=== PATIENT | male | born 1975 | race Caucasian/White ===

== ENCOUNTER 2020-02-19 00:51 | Outpatient (CLI) | payer BC, SELFPAY ==
[2020-02-19 16:39] LABS: SARS-CoV-2 RNA PCR Negative
== END 2020-02-19 00:52 | disposition home or self-care (01) ==
LOC: ANHCOVIDDT 00:51
PROVIDERS: PCP Family Medicine; Visit Provider Internal Medicine Gastroenterology
DX: Z01.818 Encounter for other preprocedural examination (principal); Z11.59 Encounter for screening for other viral diseases
CPT/HCPCS: 87635; C9803; U0003

== ENCOUNTER 2020-02-22 01:05 | Day surgery (SDC) | payer BC, SELFPAY ==
[2020-02-15 14:15] VITALS: BMI 24.7
[2020-02-22 07:47] VITALS: BP 140/83; PULSE 72; RESP 16; TEMP 37.1; O2SAT 99
[2020-02-22] MEDS: LACTATED RINGERS 1,000 ML 150 ML IV CONT (07:57)
--- NOTE | 2020-02-22 08:15 | P.PNAN_ITS ---
Anes - Initial Pre Proc Eval Procedure: Operation Date: 02/22/20 09:00 Proposed Procedures p Esophagogastroduodenoscopy & Colonoscopy - Shelton Man MD Date/Time: 02/22/20 08:15 Surgeon: Shelton Man MD Pre Op Diagnosis: abdominal pain, diarrhea Patient Data Age: 45 Gender: M Height: 6 ft 3 in Weight: 88.9 kg Last Vital Signs Temp 98.8 F 02/22/20 07:47 Pulse 72 02/22/20 07:47 Resp 16 02/22/20 07:47 BP 140/83 02/22/20 07:47 Pulse Ox 99 02/22/20 07:47 Allergies Allergy/AdvReac Type Severity Reaction Status Date / Time prednisone Allergy Mild Muscle Pain Verified 02/22/20 07:45 levofloxacin Allergy Hives Verified 02/22/20 07:45 Home Medications Medication Instructions Recorded Confirmed Type dicyclomine 10 mg capsule 10 mg PO .PRN cap 02/14/20 02/15/20 History pantoprazole 40 mg tablet,delayed 40 mg PO .PRN tablet 02/14/20 02/15/20 History release Patient hx anesthesia problems: none Family hx anesthesia problems: none [facility] Past Medical History Medical History (Updated 02/22/20 @ 08:11 by Kash Porter MD) Diarrhea GERD (gastroesophageal reflux disease) Social History Social History (Updated 02/22/20 @ 08:15 by Kash Porter MD) Smoking status: Former smoker Anes - Eval Final PreProcedure Day of Procedure 02/22/20 08:15 Patient weight: normal Heart: regular rate and rhythm Lungs: clear to auscultation Airway: Mallampati scale class II Neurological: alert and oriented Last oral intake: >/= 8 hours ASA classification: II Emergent: no Anesthetic plan: proceed Anesthesia type and monitoring: general GIVS and standard monitoring Informed Consent: The patient's anesthetic plan and its attendant risks and benefits were discussed with the patient/family/POA. Questions were solicited and answers provided to the satisfaction of the patient/family/POA.
--- NOTE | 2020-02-22 09:10 | WPDHPUPDATE1 ---
History and Physical Update Update Date/Time: 02/22/20 09:10 History and Physical has been reviewed, including an updated exam of the patient. There are NO changes in the patient's condition. Risks, benefits, and alternatives have been discussed and questions answered. Patient agrees to proceed with procedure.
[2020-02-22 10:08] VITALS: BP 89/54; PULSE 52; RESP 16; O2SAT 98
[2020-02-22 10:18] VITALS: BP 100/61; PULSE 50; RESP 10; O2SAT 98
[2020-02-22 10:28] VITALS: BP 124/72; PULSE 59; RESP 14; O2SAT 100
== END 2020-02-22 11:10 | disposition home or self-care (01) ==
PROVIDERS: PCP Family Medicine; Visit Provider Internal Medicine Gastroenterology
PROC: 0DJ08ZZ Inspection of Upper Intestinal Tract, Via Natural or Artificial Opening Endoscopic (ICD-10-PCS; CPT 43235; principal; 2020-02-22 09:00)
DX: Z12.11 Encounter for screening for malignant neoplasm of colon (principal); R10.11 Right upper quadrant pain; D12.2 Benign neoplasm of ascending colon; D12.3 Benign neoplasm of transverse colon; D12.4 Benign neoplasm of descending colon; K57.30 Diverticulosis of large intestine without perforation or abscess without bleeding; K64.8 Other hemorrhoids
CPT/HCPCS: 45385; 43239; 88305; J2704; J7120

== ENCOUNTER 2022-01-09 07:54 | Outpatient (RCR) | payer OTHER, SELFPAY ==
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
--- NOTE | 2022-02-08 08:34 | PTOPEVAL ---
Thank you for referring Nabor Winkler to [facility].? The patient is scheduled to be seen for therapy? ____x/week for ___ weeks. Please review, sign, date and return this plan of care [place]A. I agree with and certify that the following plan of care is medically necessary. Referring Physician Date Admitting Provider: Attending Provider: Jasiel Brannon, MD Referring Provider: *PT Outpatient Evaluation Start: 01/09/22 07:00 Freq: Status: Active Protocol: Document 02/08/22 07:29 [facility] (Rec: 02/08/22 08:32 [facility] [email or web address]) Therapy Assessment Status Assessment Status Assessment Status Re-evaluation Outpatient Past Medical History Neurological History Hx Neurological Disorders No Significant History Cardiovascular History Hx Peripheral Vascular Disease Yes: VALVE PROBLEM IN LEGS Respiratory History Hx Bronchitis Yes Gastrointestinal History Hx Gastroesophageal Reflux Disease Yes Genitourinary History Hx Genitourinary Disorders No Significant History Musculoskeletal History Hx Musculoskeletal Disorders No Significant History Hematological History Hx Hematological Disorders No Significant History Endocrine History Hx Endocrine Disorders No Significant History HEENT History Hx Tonsillectomy Yes Integumentary History Hx Skin Disorders No Significant History Reproductive History Hx Reproductive Disorders No Significant History Psychosocial History Hx Psychiatric Disorders No Significant History Pain History History of Any Previous or Ongoing No Significant History Instance of Pain Anesthesia History Hx Anesthesia Reactions No Significant History Evaluation Information Problem Diagnosis left shoulder pain Onset 12/23/21 Additional Evaluation Detail quick dash = 13% functionally declined Subjective Information patient reports he is feeling Query Text:As Reported By Patient/ good this date. he reports Family he has pain only a few times a day now, and has much less pain at worst in the L shoulder. he reports he feels the shoulder is stronger. he reports he is to begin skilled OT for his R wrist later today. Pain Assessment Timing of Pain Assessment Timing of Pain Assessment Assessment Pain Scale Pain Scale Used Numeric (1 - 10) Self Report Pain Assessment Left Shoulder(s) Reported Pain Level 3 Greatest Pain Intensity 4 Pain Score Pain Score 3: Self Report Interventions Used Interventions Used By Clinicians
== END 2022-02-22 09:01 | disposition home or self-care (01) ==
LOC: CHSPT 07:54
PROVIDERS: PCP Family Medicine; Visit Provider Family Medicine
DX: S49.92XD Unspecified injury of left shoulder and upper arm, subsequent encounter (principal)
CPT/HCPCS: 97014; 97110; 97140; 97161; 97530; G0283

== ENCOUNTER 2022-02-08 16:00 | Outpatient (RCR) | payer OTHER, SELFPAY ==
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
--- NOTE | 2022-03-26 17:10 | PCOTNOTE ---
Patient has been discharged from skilled OT services secondary to returning to work per MD. See patient's last treatment note for skills and concerns at time of discharge. MS
== END 2022-03-08 09:02 | disposition home or self-care (01) ==
LOC: CHSOT 16:00
PROVIDERS: PCP Family Medicine; Visit Provider Nurse Practitioner Family
DX: S69.81XD Other specified injuries of right wrist, hand and finger(s), subsequent encounter (principal)
CPT/HCPCS: 97014; 97110; 97140; 97165; G0283

== ENCOUNTER 2022-09-13 10:25 | Outpatient (CLI) | payer OTHER, SELFPAY ==
--- NOTE | ~2022-09-13 | CT_ITS ---
EXAMINATION: CT abdomen pelvis wo con DATE: 09/13/2022 10:40 INDICATION: Left flank pain TECHNIQUE: Computed tomography (CT) of the abdomen and pelvis was performed without intravenous contr ast. The dose-length product (DLP) was 704.14 mGy-cm. Automated exposure control and iterative recons truction technique were employed. COMPARISON: None FINDINGS: The lung bases are clear. The heart size is normal. The liver, spleen, pancreas, gallbladde r, and adrenal glands are normal. There is a 1.6 cm cyst of the right kidney. The left kidney is unre markable. No stones are identified in the kidneys, ureters, or bladder. No hydronephrosis or hydroure ter. No pathologically enlarged abdominal or pelvic lymph nodes are identified. There is calcified at herosclerosis of the aorta and many of the other arteries. There is no free intraperitoneal gas or ev idence of bowel obstruction. The appendix is normal. There is mild lumbar spondylosis. A fat-containi ng umbilical hernia is noted. IMPRESSION: 1. No CT correlate for the patient's symptoms. Reviewed, dictated and finalized at location B. 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
== END 2022-09-13 10:26 | disposition home or self-care (01) ==
LOC: CHSIMG 10:27
PROVIDERS: PCP Family Medicine; Visit Provider Nurse Practitioner
DX: R10.9 Unspecified abdominal pain (principal)
CPT/HCPCS: 74176

== ENCOUNTER 2023-02-07 13:52 | Outpatient (CLI) | payer MEDICAID, SELFPAY ==
--- NOTE | ~2023-02-07 | XR_ITS ---
XR lumbar spine 2-3V 02/07/2023 14:08 Indication: Low back pain Procedure: 3 views lumbar spine Comparison: No prior studies for comparison. Findings: Vertebral body heights are maintained. There is disc narrowing at L3-4, L4-5 and L5-S1. No fracture, subluxation or dislocation. No spondylolisthesis. There is atherosclerosis of the aorta. Impression: 1: Mild-moderate multilevel degenerative disc disease. Reviewed, dictated and finalized at location B. Impression: 1: Mild-moderate multilevel degenerative disc disease.
== END 2023-02-07 13:53 | disposition home or self-care (01) ==
PROVIDERS: PCP Family Medicine; Visit Provider Physician Assistant
DX: M54.50 Low back pain, unspecified (principal); M51.36 Other intervertebral disc degeneration, lumbar region
CPT/HCPCS: 72100

== ENCOUNTER 2023-02-11 10:24 | Outpatient (CLI) | payer MEDICAID, SELFPAY ==
--- NOTE | ~2023-02-11 | US_ITS ---
EXAMINATION: US arterial ankle brachial ind DATE: 02/11/2023 11:04 INDICATION: Claudication. TECHNIQUE: Segmental pressures and plethysmographic and Doppler waveforms of the brachial and lower e xtremity arteries were obtained. COMPARISON: None. FINDINGS: Right and left brachial artery pressures of 160 mm Hg and 156 mm Hg, respectively, are concordant (no rmal difference <= 30 mmHg). The right ankle-brachial index (SATYA) is 1.06 (normal >= 0.9-1.0). The right great toe-brachial index (TBI) is 0.83 (normal >= 0.65). Arterial Doppler waveforms are triphasic in posterior tibial artery a nd monophasic in dorsalis pedis. The left SATYA is 1.05. The left TBI is 0.63. Arterial Doppler waveforms are triphasic in posterior tib ial artery and biphasic in dorsalis pedis. IMPRESSION: 1. Borderline decreased left TBI and normal left SATYA, consistent with left-sided arterial occlusive d isease. Note that SATYA may be overestimated if arteries are calcified. 2. No significant right-sided arterial occlusive disease. Reviewed, dictated and finalized at location L. IMPRESSION: 1. Borderline decreased left TBI and normal left SATYA, consistent with left-side d arterial occlusive disease. Note that SATYA may be overestimated if arteries ar e calcified. 2. No significant right-sided arterial occlusive disease.
== END 2023-02-11 10:25 | disposition home or self-care (01) ==
LOC: CHSIMG 10:25
PROVIDERS: PCP Family Medicine; Visit Provider Physician Assistant
DX: I73.9 Peripheral vascular disease, unspecified (principal)
CPT/HCPCS: 93922

== ENCOUNTER 2023-04-01 14:49 | Outpatient (RCR) | payer OTHER, SELFPAY ==
--- NOTE | 2023-04-07 08:18 | BUOTOPEVAL ---
Assessment and note entered by Josefina Monet OT Evaluation Information Assessment Status Evaluation Diagnosis R wrist pain Onset October 2022 Subjective Information Patient reports pain at medial and dorsal part of R wrist. The patient reports that pulling and fine motor tasks hurt the wrist. During activities, the patient experiences pain during wrist extension and ulnar deviation. 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 The patient states numbness and tingling along ulnar nerve. The patient reports pain during MMT for serratus anterior at anterior scapula. Reported Pain Level Pain Score 0: Self Report Pain Score 4,4: Self Report Pain Score 3,6: Self Report Additional Pain Score Comments Pt. is experiencing pain, but does not rate. Assessment OT Clinical Summary The patient is a 48 year old male who was referred to outpatient OT due to wrist and shoulder pain and weakness. The patient previously demonstrated WNL UE strength, no pain and no numbness or tingling. The patient now demonstrates mild/ moderate numbness and tingling in R UE, decreased UE strength and 3-6/10 pain at R shoulder and wrist. The patient requires skilled OT to address these deficits and return to PLOF in order to complete work tasks. Plan of Care Interventions Therapeutic Exercise,Manual Therapy,Neuro Re- education,Therapeutic Activities,Hot Pack/Cold Pack,Electrical Stimulation,Sensory Integrative Techn,Self-Care/Home Management,Ultrasound OT Services Indicated Yes Treatment Frequency and 3x/week for 10 visits. Duration These treatments will address the objective and functional deficits as defined above. The patient will be advanced safely and appropriately in order for the patient to progress towards his/her prior level of function. Additional exercises will be introduced and as well as a comprehensive home exercise program upon discharge, if needed, ?to ensure carryover of functional gains achieved in the clinic. This treatment plan has been reviewed and agreement upon by the patient.
--- NOTE | 2023-04-11 09:55 | OTOPPROG ---
Assessment and note entered by Josefina Monet OT Evaluation Information Assessment Status Progress Diagnosis R wrist pain Onset October 2022 Subjective Information The patient reports pain in shoulder as 3/10 at time of progress note and continued severe pain at 7/10 during activities. Pain in wrist will fluctuate from 0 to 9/10 pain with patient performing stretches learned from therapy and heat to decrease pain in UE. The patient reports that at the start of therapy he thought his arm was feeling better but has since not changed with pain in R shoulder at scapula and deltoid region. The patient reports pain with internal rotation and scapula retraction/protraction of R UE. During axillary nerve stretches, the patient reports increased numbness and tingling in UE. Assessment OT Clinical Summary The patient demonstrates significantly improved UE strength of R UE leading to increased independence with self care tasks. The patient continues to demonstrate difficulty with lifting heavy objects due to pain in shoulder and wrist that affect his ability to go back to work. The patient demonstrates no change in R filleter strength, sensation and pain symptoms due to sharp pain that the patient has at R shoulder and wrist. The patient reports pain near scapula, anterior shoulder, and ulnar side of wrist and forearm. The patient experiences pain during protraction/ retraction of R scapula with therapist educating patient on axillary nerve glides. Following completion of stretches, the patient experienced increase in tingling symptoms with pain lingering the rest of the day. The patient has completed 6 visits of skilled OT with minimal improvement in pain symptoms, the patient to consult with MD about further treatment for pain. Plan of Care Treatment Frequency and 3x/week for 10 visits. Duration These treatments will address the objective and functional deficits as defined above. The patient will be advanced safely and appropriately in order for the patient to progress towards his/her prior level of function. Additional exercises will be introduced and as well as a comprehensive home exercise program upon discharge, if needed, ?to ensure carryover of functional gains achieved in the clinic. This treatment plan has been reviewed and agreement upon by the patient.
--- NOTE | 2023-04-29 09:58 | BUOTOPDC ---
Assessment and note entered by Josefina Monet, OT Evaluation Information Assessment Status Discharge Diagnosis R wrist pain Onset October 2022 Subjective Information The patient reports pain in R scapula, shoulder, and wrist with continued movement and use of UE. The patient has numbness and tingling in R shoulder at deltoid region. The patient stated he feels stronger and has less signs of numbness and tingling than at start of care but it continues to persist at this time. The patient stated that he wants to get this pain taken care of so that he can start to work again. Reported Pain Level Pain Score 5,5: Self Report Pain Score 3,4: Self Report Pain Score 0,3: Self Report Pain Score 0,4: Self Report Pain Score 3,0: Self Report Pain Score 0: Self Report Pain Score 3,6: Self Report Pain Score 0: Self Report Pain Score 4,4: Self Report Pain Score 3,6: Self Report Additional Pain Score Comments Patient continues to have pain throughout the day and has difficulty performing daily tasks that involve lifting UE. Additional Pain Score Comments Pt. has pain today but does not rate. Additional Pain Score Comments Pt. is experiencing pain, but does not rate. Assessment OT Clinical Summary The patient demonstrates good progress with UE strength affecting his ability to perform daily tasks. The patient continues to demonstrate mild to moderate numbness and tingling in R shoulder and scapula and 6/10 pain in R shoulder and wrist which affect his ability to work and provide income for his family. The patient has demonstrated good understanding and follow through with UE HEP and good motivation to participate in therapy. The patient is discharged at this time due to plateau in progress, to address pain with MD. Plan of Care Interventions Therapeutic Exercise,Manual Therapy,Neuro Re- education,Therapeutic Activities,Hot Pack/Cold Pack,Electrical Stimulation,Sensory Integrative Techn,Self-Care/Home Management,Ultrasound OT Services Indicated No Treatment Frequency and 3x/week for 10 visits. Duration
== END 2023-04-28 17:20 | disposition home or self-care (01) ==
LOC: CHSOT 14:49
PROVIDERS: PCP Family Medicine; Visit Provider Physician Assistant
DX: M25.531 Pain in right wrist (principal)
CPT/HCPCS: 97014; 97110; 97140; 97165; 97530; G0283

== ENCOUNTER 2023-06-12 08:51 | Outpatient (CLI) | payer OTHER, SELFPAY ==
--- NOTE | ~2023-06-12 | MR_ITS ---
MRI of the right shoulder Technique: Axial proton-density fat-sat images, coronal proton density fat-sat and T2 fat-sat images, and sagittal T1-weighted and T2 fat-sat images were acquired. Clinical History: Pain, tingling Findings: There is no significant degenerative change at the AC joint. Coracoclavicular, coracoacromi al, and coracohumeral ligaments are probably intact. Supraspinatus and infraspinatus tendons are intact, without partial or full-thickness tear. Subscapul alissa tendon is intact. Tendon of the long head of the biceps is intact. No definite labral tear identified. Inferior glenohumeral ligament is intact. There is mild diffuse chondromalacia of the glenohumeral damaris int. No joint effusion evident. No fluid distention of the subacromial/subdeltoid bursa. No muscle at rophy or edema. Impression: Mild chondromalacia the glenohumeral joint. Reviewed, dictated and finalized at [facility]. Impression: Mild chondromalacia the glenohumeral joint.
--- NOTE | ~2023-06-12 | MR_ITS ---
MRI of the right wrist Technique: Coronal T1 weighted and proton density fat sat images, and axial and sagittal proton-densi ty and proton-density fat-sat images were acquired. Clinical History: Pain Findings: Scapholunate ligament is intact, and there is no widening of the scapholunate interval. David otriquetral ligament appears intact. There is mild thickening and increased signal of the foveal and ulnar styloid attachments of the TFCC. Bone marrow signals are unremarkable. Joint spaces are preserved. No joint effusion evident. No erosi ve change. Flexor tendons in the carpal tunnel are unremarkable. Extensor tendons are unremarkable. No soft tiss ue mass or fluid collection seen. IMPRESSION: Mild thickening and increased signal of the foveal and ulnar styloid attachments of the TFCC suggests low-grade injury/sprain. Reviewed, dictated and finalized at [facility]. IMPRESSION: Mild thickening and increased signal of the foveal and ulnar styloid attachment s of the TFCC suggests low-grade injury/sprain.
== END 2023-06-12 08:52 | disposition home or self-care (01) ==
PROVIDERS: PCP Family Medicine; Visit Provider Physician Assistant
DX: M94.211 Chondromalacia, right shoulder (principal); M24.131 Other articular cartilage disorders, right wrist
CPT/HCPCS: 73221

== ENCOUNTER 2023-08-14 16:59 | Outpatient (RCR) | payer OTHER, SELFPAY ==
--- NOTE | 2023-08-14 17:52 | OPREHPOC ---
Outpatient Therapy Plan of Care This is a Multidisciplinary Plan of Care that may contain components documented by all disciplines (PT, OT, and ST.) PT Problem 1 PT Problem #1 Knowledge Deficit PT Goal 1 Goal The patient will be independent in a home exercise program. Target Visit 12 PT Problem 2 PT Problem #2 Pain PT Goal 1 Goal The patient will report no greater than 3/10 right shoulder pain with repetitive or sustained overhead movements. Target Visit 12 PT Problem 3 PT Problem #3 Impaired Range of Motion PT Goal 1 Goal The patient will demonstrate 150 degrees of right shoulder abduction AROM in order to perform overhead lifting for daily activities. Target Visit 12 PT Problem 4 PT Problem #4 Impaired Strength PT Goal 1 Goal The patient will demonstrate 4+/5 or greater strength in right shoulder flexion and abduction in order to improve lifting ability. Target Visit 12 PT Problem 5 PT Problem #5 Impaired Functional Mobil PT Goal 1 Goal The patient will have 30% or less self perceived disability per the Quick DASH questionnaire. Target Visit 12
--- NOTE | 2023-08-14 17:52 | PTOPEVAL1 ---
Assessment and note entered by Juliet Arevalo, PT Evaluation Information Assessment Status Evaluation Diagnosis R shoulder impingement Onset 11/05/22 Subjective Information Nabor Winkler reports he hurt his right hand in October 2022 while working. He had an onset of right shoulder pain and stiffness while he was resting while his hand was healing. He notes increased pain when sweeping, casting while fishing, or cleaning a wall or painting a wall. 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 He also notes tingling in his upper back when he moves his arm in an overhead position for a long period like washing his hair. He reports a history of neck arthritis and right hand tendon tear in December 2021 . He is using Meloxicam and Tylenol for his pain as well as ice and heat. Reported Pain Level Pain Score 4: Self Report Assessment PT Clinical Summary Nabor Winkler presents with right shoulder and upper back pain. He has difficulty with sustained overhead movements and repetitive movements like sweeping. He objectively demonstrates tenderness at the right bicep tendon long head, tension in bilateral upper trapezius muscles, decreased right shoulder AROM with a painful arc noted with abduction, decreased right shoulder strength, positive special tests for shoulder impingement and rotator cuff pathology, and decreased functional abilities. He will benefit from skilled PT to address these limitations. Plan of Care Interventions Electrical Stimulation,Hot Pack/Cold Pack,Manual Therapy,Neuro Re-education,Patient/Caregiver Educati,Therapeutic Activities,Therapeutic Exercise PT Services Indicated Yes Treatment Frequency and 3 times a week for 12 visits Duration These treatments will address the objective and functional deficits as defined above. The patient will be advanced safely and appropriately in order for the patient to progress towards his/her prior level of function. Additional exercises will be introduced and as well as a comprehensive home exercise program upon discharge, if needed, ?to ensure carryover of functional gains achieved in the clinic. This treatment plan has been reviewed and agreement upon by the patient.
--- NOTE | 2023-09-02 08:26 | OPREHPOC ---
Outpatient Therapy Plan of Care This is a Multidisciplinary Plan of Care that may contain components documented by all disciplines (PT, OT, and ST.) PT Problem 1 PT Problem #1 Knowledge Deficit PT Goal 1 Goal The patient will be independent in a home exercise program. Target Visit 12 PT Problem 2 PT Problem #2 Pain PT Goal 1 Goal The patient will report no greater than 3/10 right shoulder pain with repetitive or sustained overhead movements. The patient will report no greater than 3/10 pain in the cervical spine. Target Visit 12 PT Problem 3 PT Problem #3 Impaired Range of Motion PT Goal 1 Goal The patient will demonstrate 150 degrees of right shoulder abduction AROM in order to perform overhead lifting for daily activities. Improve bilateral cervical sidebending to 40 degrees Improve cervical extension to 50 degrees Target Visit 12 PT Problem 4 PT Problem #4 Impaired Strength PT Goal 1 Goal The patient will demonstrate 5/5 or greater strength in bilateral shoulders overall Target Visit 12 PT Problem 5 PT Problem #5 Impaired Functional Mobil PT Goal 1 Goal The patient will have 30% or less self perceived disability per the Quick DASH questionnaire. Patient will report reduction of R radicular symptoms to not past the R shoulder. Target Visit 12
--- NOTE | 2023-09-02 08:26 | PTOPREEVAL ---
Assessment and note entered by JT File, PT Evaluation Information Assessment Status Re-evaluation Diagnosis cervical radiculopathy Onset 08/29/23 Subjective Information patient arrives to therapy today having recently learned of results of his neck MRI since his last therapy visit. he reports he has some bulged discs and stenosis/spondylosis. he reports the MD suggests we hold on the shoulder at this time, and focus on treatment of the neck. he presents to skilled PT with orders to evaluate and treat patient for cervical radiculopathy. he reports he has pain at the base of his skull, at times he will have a twinge on either side of the neck, and he has pain and tingling in the R shoulder. he reports the symptoms will carry down to the finger tips of the R arm. Assessment PT Clinical Summary mr. alcala is a 48 yo man who presents to skilled PT services for his 6th skilled therapy visit for the shoulder. however, he presents to skilled PT today with orders to evaluate the neck for cervical radiculopathy. he presents today with deficits in cervical rom, positive cervical special tests, and paresthesias in the R arm indicative of R cervical radiculopathy. he would benefit from continued skilled PT to focus on shift of treatment to the cervical spine for the remainder of his initial POC. Plan of Care Interventions Electrical Stimulation,Hot Pack/Cold Pack,Manual Therapy,Mechanical Traction,Neuro Re-education, Patient/Caregiver Educati,Therapeutic Activities, Therapeutic Exercise PT Services Indicated Yes Treatment Frequency and continue skilled PT 3x weekly for 6 more visits Duration from today. These treatments will address the objective and functional deficits as defined above. The patient will be advanced safely and appropriately in order for the patient to progress towards his/her prior level of function. Additional exercises will be introduced and as well as a comprehensive home exercise program upon discharge, if needed, ?to ensure carryover of functional gains achieved in the clinic. This treatment plan has been reviewed and agreement upon by the patient.
--- NOTE | 2023-09-24 17:25 | OPREHPOC ---
Outpatient Therapy Plan of Care This is a Multidisciplinary Plan of Care that may contain components documented by all disciplines (PT, OT, and ST.) PT Problem 1 PT Problem #1 Knowledge Deficit PT Goal 1 Goal The patient will be independent in a home exercise program. Target Visit 12 Progress Met PT Problem 2 PT Problem #2 Pain PT Goal 1 Goal The patient will report no greater than 3/10 right shoulder pain with repetitive or sustained overhead movements. The patient will report no greater than 3/10 pain in the cervical spine. Target Visit 18 Progress Not Met PT Problem 3 PT Problem #3 Impaired Range of Motion PT Goal 1 Goal The patient will demonstrate 150 degrees of right shoulder abduction AROM in order to perform overhead lifting for daily activities. Improve bilateral cervical sidebending to 40 degrees Improve cervical extension to 50 degrees Target Visit 18 Progress Not Met Comment progress made PT Problem 4 PT Problem #4 Impaired Strength PT Goal 1 Goal The patient will demonstrate 5/5 or greater strength in bilateral shoulders overall Target Visit 18 Progress Partially Met PT Problem 5 PT Problem #5 Impaired Functional Mobil PT Goal 1 Goal The patient will have 30% or less self perceived disability per the Quick DASH questionnaire. Patient will report reduction of R radicular symptoms to not past the R shoulder. patient to turn head to both sides without increased cervical pain or R UE paresthesias Target Visit 18 Progress Not Met
--- NOTE | 2023-09-24 17:26 | PTOPREEVAL ---
Assessment and note entered by JT File, PT Evaluation Information Assessment Status Re-evaluation Diagnosis cervical radiculopathy Onset 08/29/23 Subjective Information patient reports he feels Alright today. he reports he has good days and bad days with the neck. he reports the symptoms in the R arm are less frequent, but at times will still go down to the hand (no longer all the time though). he reports he will have to work his neck side to side until it pops and then he will be pain/symptom free for a few hours. he reports he is better overall since the therapy on the neck began as he has more good days than bad days. Reported Pain Level Pain Score 3,4: Self Report Assessment PT Clinical Summary mr. alcala presents to skilled PT for his 12th skilled therapy visit. during his initial bouts of therapy, treatment was focused on the R shoulder. however, after an MRI and new orders sent over for his neck, treatment has shifted to cervical rom, modalities for pain/paresthesias, and exercises for posture and scapular/shoulder/ cervical strength. he presents with decreased symptoms today reporting having more good days than bad days. he also displays increased cervical rotation and sidebending rom. he would benefit from continued skilled PT to the cervical spine to work on achievement of the remainder of his goals , and return to pain free activities without UE paresthesias. Plan of Care Interventions Electrical Stimulation,Hot Pack/Cold Pack,Manual Therapy,Neuro Re-education,Patient/Caregiver Educati,Therapeutic Activities,Therapeutic Exercise PT Services Indicated Yes Treatment Frequency and 2x weekly for 6 more visits Duration These treatments will address the objective and functional deficits as defined above. The patient will be advanced safely and appropriately in order for the patient to progress towards his/her prior level of function. Additional exercises will be introduced and as well as a comprehensive home exercise program upon discharge, if needed, ?to ensure carryover of functional gains achieved in the clinic. This treatment plan has been reviewed and agreement upon by the patient.
--- NOTE | 2023-10-02 11:05 | PCPTNOTE ---
10/02/23: Pt canceled his appointment on 09/30/23 stating he couldn't make it. -Juliet Arevalo, PT
--- NOTE | 2023-10-21 17:46 | OPREHPOC ---
Outpatient Therapy Plan of Care This is a Multidisciplinary Plan of Care that may contain components documented by all disciplines (PT, OT, and ST.) PT Problem 1 PT Problem #1 Knowledge Deficit PT Goal 1 Goal The patient will be independent in a home exercise program. Target Visit 24 Progress Met PT Problem 2 PT Problem #2 Pain PT Goal 1 Goal The patient will report no greater than 3/10 right shoulder pain with repetitive or sustained overhead movements. The patient will report no greater than 3/10 pain in the cervical spine. Target Visit 24 Progress Not Met PT Problem 3 PT Problem #3 Impaired Range of Motion PT Goal 1 Goal The patient will demonstrate 150 degrees of right shoulder abduction AROM in order to perform overhead lifting for daily activities. The patient will demonstrate bilateral cervical sidebending to 40 degrees to improve functional ROM. Target Visit 24 Progress Not Met PT Problem 4 PT Problem #4 Impaired Strength PT Goal 1 Goal The patient will demonstrate 5/5 or greater strength in bilateral shoulders overall Target Visit 24 Progress Partially Met PT Problem 5 PT Problem #5 Impaired Functional Mobil PT Goal 1 Goal The patient will have 30% or less self perceived disability per the Neck Disability questionnaire. Patient will report reduction of R radicular symptoms to no lower than the right shoulder. Target Visit 24 Progress Not Met
--- NOTE | 2023-10-21 17:47 | PTOPREEVAL ---
Assessment and note entered by Juliet Arevalo, PT Evaluation Information Assessment Status Re-evaluation Diagnosis Cervical Radiculopathy, Cervical Pain Onset 10/16/23 Subjective Information Nabor Winkler reports he continues to have neck pain with radiation to the right upper extremity and occasionally the left upper extremity so he saw a neurosurgeon on 10/16/23. He reports the neurosurgeon does not want to do surgery just yet. He was referred back to PT, pain management, and to get a NCV test. He will see her again in 2 months and if symptoms are not better he will have surgery. He continues to have pain in her neck and right > left shoulder. He notes pulling on the right side of his neck when he tilts to the left and when he tilts to the right he has increased right shoulder pain. He has constant numbness and tingling in upper back and both shoulders down to his middle, ring, and pinky fingers. Reported Pain Level Pain Score 7,7: Self Report Assessment PT Clinical Summary Nabor Winkler continues to have neck pain with radiation of pain to the right shoulder and numbness and tingling into the right 3rd, 4th, and 5th digits. He also occasionally has the same symptoms on the left side. He recently saw a neurosurgeon after having a MRI that showed bulging discs and stenosis. He was referred back to PT, to pain management, and to get a NCV test. He demonstrates decreased and painful cervical AROM, reproduction of pain with right cervical quadrant testing, and poor posture. He will benefit from re-initiation of PT to address these limitations and decrease pain with daily activities. Plan of Care Interventions Electrical Stimulation,Hot Pack/Cold Pack,Manual Therapy,Mechanical Traction,Neuro Re-education, Patient/Caregiver Educati,Therapeutic Activities, Therapeutic Exercise PT Services Indicated Yes Treatment Frequency and 2 times a week for 12 visits Duration These treatments will address the objective and functional deficits as defined above. The patient will be advanced safely and appropriately in order for the patient to progress towards his/her prior level of function. Additional exercises will be introduced and as well as a comprehensive home exercise program upon discharge, if needed, ?to ensure carryover of functional gains achieved in the clinic. This treatment plan has been reviewed and agreement upon by the patient.
--- NOTE | 2023-10-30 17:55 | PCPTNOTE ---
10/30/23: Pt cancelled prior to start of day, no reason listed. -Juliet Arevalo, PT
== END 2023-11-11 20:09 | disposition still patient (30) ==
LOC: CHSPT 16:59
PROVIDERS: Visit Provider Orthopaedic Surgery
DX: M75.41 Impingement syndrome of right shoulder (principal)
CPT/HCPCS: 97012; 97014; 97110; 97140; 97161; 97164; G0283

== ENCOUNTER 2023-11-13 16:21 | Outpatient (RCR) | payer OTHER, SELFPAY | END 2023-12-01 08:10 | disposition home or self-care (01) | LOC: CHSPT 16:21 | PROVIDERS: Visit Provider Orthopaedic Surgery | DX: M75.41 Impingement syndrome of right shoulder (principal); M54.12 Radiculopathy, cervical region; M54.2 Cervicalgia | CPT/HCPCS: 97012; 97110; 97112; 97140; 97150 ==

== ENCOUNTER 2024-04-19 15:54 | Outpatient (RCR) | payer OTHER, SELFPAY ==
--- NOTE | 2024-04-19 16:38 | PTOPEVAL1 ---
Assessment and note entered by Ghulam Sibley Evaluation Information Assessment Status Evaluation ICD-10 Condition Codes (PT) Cervicalgia M54.2 Onset 04/19/23 Subjective Information Pt. reports that he has been experiencing on/off right shoulder and neck pain for about 1 year. he has done PT in the past and provided slight relief. He reports that over the past year his condition has improved and notices pain down the left arm has subsided. He states that pain stays centralized to the neck and right shoulder blade area. He reports that pain will wake him nightly after about 5 hours of sleep. 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 He reports that he has met with the surgeon who thought he was a surgical candidate. He reports that he has had injections with no relief. He reports that he would like to avoid surgery and states that he would like to participate in PT to relieve pain. Reported Pain Level Pain Score 5: Self Report Assessment PT Clinical Summary Pt. is a 49 year old male who enters the clinic with a diagnosis of neck pain. He presents with impaired c-spine ROM, impaired postural awareness, mild right proximal u.e. weakness and pain. Continued skilled PT is indicated in order to improve these areas to allow the pt. to be able to complete all IADL's with improved comfort and efficiency. Plan of Care Interventions Electrical Stimulation,Hot Pack/Cold Pack,Manual Therapy,Neuro Re-education,Patient/Caregiver Educati,Therapeutic Activities,Therapeutic Exercise PT Services Indicated Yes Treatment Frequency and 2x/week x 10 visits Duration These treatments will address the objective and functional deficits as defined above. The patient will be advanced safely and appropriately in order for the patient to progress towards his/her prior level of function. Additional exercises will be introduced and as well as a comprehensive home exercise program upon discharge, if needed, ?to ensure carryover of functional gains achieved in the clinic. This treatment plan has been reviewed and agreement upon by the patient.
--- NOTE | 2024-04-19 16:48 | OPREHPOC ---
Outpatient Therapy Plan of Care This is a Multidisciplinary Plan of Care that may contain components documented by all disciplines (PT, OT, and ST.) PT Problem 1 PT Problem #1 Knowledge Deficit PT Goal 1 Goal Pt. will be independent with a HEP addressing posture and mobility. Target Visit 2 PT Problem 2 PT Problem #2 Impaired Range of Motion PT Goal 1 Goal Pt. will demonstrate 85 degrees bilateral c-spine rotation active ROM. Target Visit 10 PT Problem 3 PT Problem #3 Pain PT Goal 1 Goal Pt. will report reduction of pain levels to 3/10 at worst with all IADL's. Target Visit 10 PT Problem 4 PT Problem #4 Impaired Functional Mobil PT Goal 1 Goal Pt. will present with less than 15% limitation with the NDI indicating significant functional improvement. Target Visit 10
--- NOTE | 2024-05-12 16:15 | PTOPEVAL1 ---
Assessment and note entered by Ghulam Sibley Evaluation Information Assessment Status Evaluation ICD-10 Condition Codes (PT) Cervicalgia M54.2 Onset 04/19/23 Subjective Information Pt. reports that he has been experiencing on/off right shoulder and neck pain for about 1 year. he has done PT in the past and provided slight relief. He reports that over the past year his condition has improved and notices pain down the left arm has subsided. He states that pain stays centralized to the neck and right shoulder blade area. He reports that pain will wake him nightly after about 5 hours of sleep. 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 He reports that he has met with the surgeon who thought he was a surgical candidate. He reports that he has had injections with no relief. He reports that he would like to avoid surgery and states that he would like to participate in PT to relieve pain. Reported Pain Level Pain Score 6: Self Report Assessment PT Clinical Summary Pt. is a 49 year old male who enters the clinic with a diagnosis of neck pain. He presents with impaired c-spine ROM, impaired postural awareness, mild right proximal u.e. weakness and pain. Continued skilled PT is indicated in order to improve these areas to allow the pt. to be able to complete all IADL's with improved comfort and efficiency. Plan of Care Interventions Electrical Stimulation,Hot Pack/Cold Pack,Manual Therapy,Neuro Re-education,Patient/Caregiver Educati,Therapeutic Activities,Therapeutic Exercise PT Services Indicated Yes Treatment Frequency and 2x/week x 10 visits Duration These treatments will address the objective and functional deficits as defined above. The patient will be advanced safely and appropriately in order for the patient to progress towards his/her prior level of function. Additional exercises will be introduced and as well as a comprehensive home exercise program upon discharge, if needed, ?to ensure carryover of functional gains achieved in the clinic. This treatment plan has been reviewed and agreement upon by the patient.
--- NOTE | 2024-05-20 16:33 | OPREHPOC ---
Outpatient Therapy Plan of Care This is a Multidisciplinary Plan of Care that may contain components documented by all disciplines (PT, OT, and ST.) PT Problem 1 PT Problem #1 Knowledge Deficit PT Goal 1 Goal / Goal Update Pt. will be independent with a HEP addressing posture and mobility. Target Visit 2 Progress Met PT Problem 2 PT Problem #2 Impaired Range of Motion PT Goal 1 Goal / Goal Update Pt. will demonstrate 85 degrees bilateral c-spine rotation active ROM. Target Visit 10 Progress Not Met PT Problem 3 PT Problem #3 Pain PT Goal 1 Goal / Goal Update Pt. will report reduction of pain levels to 3/10 at worst with all IADL's. Target Visit 10 Progress Not Met PT Problem 4 PT Problem #4 Impaired Functional Mobil PT Goal 1 Goal / Goal Update Pt. will present with less than 15% limitation with the NDI indicating significant functional improvement. Target Visit 10 Progress Not Met
--- NOTE | 2024-05-20 16:33 | PTOPDC ---
Assessment and note entered by JT File, PT Evaluation Information Assessment Status Discharge ICD-10 Condition Codes (PT) Cervicalgia M54.2 Onset 04/19/23 Subjective Information patient reports he was doing better. however, he got an injection last week, and at some point this weekend woke up with his pain and symptoms back. he reports he feels he is right back to square one . he reports he has been doing his exercises, but no change in his symptoms since his pain came back . Reported Pain Level Pain Score 7: Self Report Pain Score 7: Self Report Assessment PT Clinical Summary mr. alcala presents to skilled PT today with a return of pain and symptoms in the neck. he recently had injections that helped for a day or 2 , but now his pain is back. he has partially met goals for skilled PT, but will DC skilled PT today with instruction to follow up with MD regarding need for surgery. patient will continue with HEP independent at home. Plan of Care PT Services Indicated Yes
== END 2024-05-20 13:37 | disposition home or self-care (01) ==
LOC: CHSPT 15:54
DX: M54.12 Radiculopathy, cervical region (principal)
CPT/HCPCS: 97014; 97110; 97140; 97161; G0283

== ENCOUNTER 2024-10-04 14:00 | Outpatient (RCR) | payer OTHER, SELFPAY ==
--- NOTE | 2024-10-04 15:03 | PTOPEVAL1 ---
Assessment and note entered by Ghulam Sibley Evaluation Information Assessment Status Evaluation ICD-10 Condition Codes (PT) Radiculopathy, cervical M54.13 Other ICD-10 Condition Codes ( s/p C6-C7 fusion PT) Onset 08/24/24 Subjective Information Pt. reports that he underwent surgery to the cervical spine to fuse the C6-C7 vertebrae. he reports that following surgery he did notice less pain shooting into the right arm and shoulder blade. He states that he had constant numbness in the right hand before surgery and now numbness is intermittent. He states that he still has numbness and tingling and continued weakness in the right arm. He states that he does wake on occasion from sleep, but is able to fall back asleep. He states that he was active with fishing and was in the gym frequently prior to injury. He states that his goal is to decrease his pain and be able to return to activities such as painting and getting to the gym. Reported Pain Level Pain Score 4: Self Report Assessment PT Clinical Summary Pt. is a 49 year old male approximately 5 weeks post cervical fusion. He presents with generalized proximal u.e. weakness, impaired postural awareness, impaired thoracic accessory mobility, impaired c-spine ROM and pain. Continued skilled PT is indicated in order to improve these areas to allow the pt. to be able to complete all IADL's with improved comfort and efficiency. Plan of Care Interventions Electrical Stimulation,Hot Pack/Cold Pack,Manual Therapy,Neuro Re-education,Patient/Caregiver Education,Therapeutic Activities,Therapeutic Exercise PT Services Indicated Yes Treatment Frequency and 2x/week x 12 visits Duration These treatments will address the objective and functional deficits as defined above. The patient will be advanced safely and appropriately in order for the patient to progress towards his/her prior level of function. Additional exercises will be introduced and as well as a comprehensive home exercise program upon discharge, if needed, ?to ensure carryover of functional gains achieved in the clinic. This treatment plan has been reviewed and agreement upon by the patient.
--- NOTE | 2024-10-04 15:04 | OPREHPOC ---
Outpatient Therapy Plan of Care This is a Multidisciplinary Plan of Care that may contain components documented by all disciplines (PT, OT, and ST.) PT Problem 1 PT Problem #1 Knowledge Deficit PT Goal 1 Goal / Goal Update Pt. will be independent with a HEP addressing postural awareness and c-spine mobility. Target Visit 2 PT Problem 2 PT Problem #2 Impaired Range of Motion PT Goal 1 Goal / Goal Update Pt. will demonstrate 75 degrees bilateral c-spine rotation active ROM in order to improve visual field. Target Visit 12 PT Problem 3 PT Problem #3 Impaired Strength PT Goal 1 Goal / Goal Update Pt. will present with 5/5 gross proximal u.e. strength Pt. will demonstrate safe body mechanics with lifting object overhead and from floor to waist weight up to 15# Target Visit 12 PT Problem 4 PT Problem #4 Impaired Functional Mobility PT Goal 1 Goal / Goal Update Pt. will present with less than 20% limitation on the NDI indicating significant functional improvement. Target Visit 12
--- NOTE | 2024-11-11 16:22 | PTOPREEVAL ---
Assessment and note entered by JT File, PT Evaluation Information Assessment Status Re-evaluation ICD-10 Condition Codes (PT) Radiculopathy, cervical M54.13,Pain in right shoulder M25.511 Other ICD-10 Condition Codes ( s/p C6-C7 fusion PT) Onset 08/24/24 Subjective Information patient reports the neck feels great, but the R shoulder is bothering him now. he reports he has improved mobility and little to no pain in the neck anymore. he reports the R shoulder is increased with repetitive lifting/use. he reports the outside of the R shoulder will hurt. he reports he returns to the doctor in december. he reports he is more flared up in the R shoulder today from washing a couple cars yesterday. Reported Pain Level Pain Score 0,6: Self Report Pain Score 0: Self Report Assessment PT Clinical Summary mr. alcala presents to skilled PT services for re-evaluation of his therapy on the neck. he presents with improve rom, decreased pain, and improved functional assessment of the neck. however, he now have pain in the R shoulder. his signs and symptoms indicate a shoulder RTC tendonitis with secondary impingement. continued skilled PT of the R shoulder is indicated, but we will DC skilled PT of the neck. Plan of Care Interventions Electrical Stimulation,Hot Pack/Cold Pack,Manual Therapy,Neuro Re-education,Patient/Caregiver Education,Therapeutic Activities,Therapeutic Exercise PT Services Indicated Yes Treatment Frequency and continue skilled PT 2x weekly for 8 more visits Duration These treatments will address the objective and functional deficits as defined above. The patient will be advanced safely and appropriately in order for the patient to progress towards his/her prior level of function. Additional exercises will be introduced and as well as a comprehensive home exercise program upon discharge, if needed, ?to ensure carryover of functional gains achieved in the clinic. This treatment plan has been reviewed and agreement upon by the patient.
--- NOTE | 2024-12-23 07:53 | OPREHPOC ---
Outpatient Therapy Plan of Care This is a Multidisciplinary Plan of Care that may contain components documented by all disciplines (PT, OT, and ST.) PT Problem 1 PT Problem #1 Knowledge Deficit PT Goal 1 Goal / Goal Update Pt. will be independent with a HEP addressing postural awareness and c-spine mobility. Target Visit 2 Progress Met PT Problem 2 PT Problem #2 Impaired Range of Motion PT Goal 1 Goal / Goal Update Pt. will demonstrate 75 degrees bilateral c-spine rotation active ROM in order to improve visual field. Target Visit 12 Progress Met PT Problem 3 PT Problem #3 Impaired Strength PT Goal 1 Goal / Goal Update Pt. will present with 5/5 gross proximal u.e. strength Pt. will demonstrate safe body mechanics with lifting object overhead and from floor to waist weight up to 15# Target Visit 20 Progress Not Met PT Goal 2 Goal / Goal Update continue for shoulder PT Problem 4 PT Problem #4 Impaired Functional Mobility PT Goal 1 Goal / Goal Update Pt. will present with less than 20% limitation on the NDI indicating significant functional improvement. Target Visit 12 Progress Met PT Problem 5 PT Problem #5 Impaired Functional Mobility PT Goal 1 Goal / Goal Update 1. 155 degrees active R shoulder flex without pain 2. functional reach behind head to the shirt collar with the R UE without pain 3. quick dash to display less than 20% functional deficits 4. patient to lift 10lbs to shoulder level shelf without pain with the R UE Target Visit 20 Progress Not Met
--- NOTE | 2024-12-23 07:54 | PTOPREEVAL ---
Assessment and note entered by JT File, PT Evaluation Information Assessment Status Re-evaluation ICD-10 Condition Codes (PT) Pain in right shoulder M25.511 Other ICD-10 Condition Codes ( s/p C6-C7 fusion PT) Onset 08/24/24 Subjective Information patient reports he was feeling great until recently when he reached and stretched the R shoulder and now is having more pain. he reports he is going to see the ortho on friday. he reports he has continued increased pain in the R shoulder with reaching overhead and reaching across his body. he reports the neck is still doing well and is not bothering him. he reports he is compliant with his neck stretches and exercises that helps to keep him loosened up. Reported Pain Level Pain Score 4,0: Self Report Assessment PT Clinical Summary mr. alcala presents to skilled PT today with a flare up of pain in the R shoulder from a pop when stretching this morning. he is tender to the anterior shoulder, and displays positive impingement and rtc testing. he is scheduled to see an ortho this next week. he has not met any new goals thus far for the R shoulder. he will hold skilled PT at this time, and await instructions from his evaluation with ortho. Plan of Care Interventions Electrical Stimulation,Hot Pack/Cold Pack,Manual Therapy,Neuro Re-education,Patient/Caregiver Education,Therapeutic Activities,Therapeutic Exercise PT Services Indicated Yes Treatment Frequency and hold therapy Duration These treatments will address the objective and functional deficits as defined above. The patient will be advanced safely and appropriately in order for the patient to progress towards his/her prior level of function. Additional exercises will be introduced and as well as a comprehensive home exercise program upon discharge, if needed, ?to ensure carryover of functional gains achieved in the clinic. This treatment plan has been reviewed and agreement upon by the patient.
== END 2025-01-02 23:59 | disposition home or self-care (01) ==
LOC: CHSPT 14:00
DX: M54.12 Radiculopathy, cervical region (principal)
CPT/HCPCS: 97014; 97110; 97112; 97140; 97150; 97161; 97164; 97530; G0283